=== PATIENT | male | born 1965 | race Caucasian/White ===

== ENCOUNTER 2023-06-03 14:01 | Emergency (ER) | payer BC ==
[~2023-06-03] VITALS: Ht 167.6 cm; Wt 73.5 kg
[2023-06-03 14:40] VITALS: BP_SYST 140; PULSE 89; RESP 20; TEMP 98; O2SAT 97
[2023-06-03] MEDS ORDERED: NACL 0.9% 1,000 ML IV ONE (15:00)
[2023-06-03 16:16] LABS: BASOPHILS % (AUTO) 0.4 % (0.0-2.0); EOSINOPHILS # (AUTO) 0.2 K/uL (0.0-0.4); EOSINOPHILS % (AUTO) 2.6 % (0.0-4.0); HEMATOCRIT 45.6 % (36-54); LYMPHOCYTES # (AUTO) 1.6 K/uL (1.0-5.5); LYMPHOCYTES % (AUTO) 19.9 % (20.5-51.5); MEAN CORPUSCULAR HEMOGLOBIN 31 pg (27-31); MEAN CORPUSCULAR HGB CONC 33 % (32-36); MEAN CORPUSCULAR VOLUME 93 fL (79.0-98.0); MONOCYTES # (AUTO) 1.6 K/uL (0.0-1.0); MONOCYTES % (AUTO) 19.5 % (1.7-9.3); NEUTROPHILS # (AUTO) 4.7 K/uL (1.8-7.7); NEUTROPHILS % (AUTO) 57.6 % (40.0-70.0); PLATELET COUNT (AUTO) 256 K/uL (130-430); RED BLOOD CELL COUNT(AUTO) 4.89 MIL/uL (4.2-6.2); RED CELL DISTRIBUTION WIDTH 13.5 % (9.0-15.0); WHITE BLOOD COUNT (AUTO) 8.2 K/uL (4.8-10.8)
[2023-06-03 16:27] LABS: INFLUENZA TYPE A Negative (NEGATIVE); INFLUENZA TYPE B NEGATIVE (NEGATIVE)
[2023-06-03 16:28] LABS: PROTHROMBIN TIME 9.9 SECS (9.5-12.5)
[2023-06-03 16:30] LABS: CALCIUM 9.2 mg/dL (8.4-11.0); CREATININE 0.79 mg/dL (0.55-1.30); POTASSIUM 3.8 mmol/L (3.5-5.1)
[2023-06-03 16:35] LABS: TOTAL BILIRUBIN 0.3 mg/dL (0.0-1.0); TOTAL PROTEIN, SERUM 7.3 g/dL (6.4-8.3)
[2023-06-03 16:42] LABS: BILIRUBIN,URINE NEGATIVE (NEGATIVE); CLARITY/URINE CLEAR (CLEAR); COLOR,URINE YELLOW (YELLOW); GLUCOSE,URINE 3+ (NEGATIVE); KETONES,URINE NEGATIVE (NEGATIVE); LEUKOCYTE ESTERASE ,URINE NEGATIVE (NEGATIVE); NITRITE, URINE NEGATIVE (NEGATIVE); PROTEIN URINE TRACE (NEGATIVE); UROBILINOGEN,URINE 0.2 (0.2-1.0)
[2023-06-03 16:44] LABS: BLOOD, URINE TRACE (NEGATIVE)
[2023-06-03] MEDS ORDERED: KETOROLAC TROMETHAMINE 30 MG VIAL IVP ONE (17:00)
[2023-06-03 17:01] LABS: BACTERIA,URINE FEW /HPF (None Seen); WBC,URINE 0-3 /HPF (0-3)
[2023-06-03 18:32] VITALS: BP_SYST 169; PULSE 82; RESP 20; TEMP 98.1; O2SAT 97
== END 2023-06-03 18:32 | disposition home or self-care (01) ==
LOC: SED 14:01
DX: B34.9 Viral infection, unspecified (principal); R53.1 Weakness; R30.0 Dysuria; R10.9 Unspecified abdominal pain; E11.9 Type 2 diabetes mellitus without complications; I10 Essential (primary) hypertension; Z79.899 Other long term (current) drug therapy; Z20.822 Contact with and (suspected) exposure to COVID-19
CPT/HCPCS: 99285; 96360; 71045; 87426; 80053; 81001; 85025; 85610; 85730; 87040; 87086; 36415; 93005; 83605; 87804 ×2; 81000; 81015; J7030

== ENCOUNTER 2024-04-15 12:23 | Emergency (ER) | payer BC ==
[~2024-04-15] VITALS: Ht 165.1 cm; Wt 78.5 kg
[2024-04-15 12:26] VITALS: BP_SYST 124; PULSE 90; RESP 16; TEMP 97.3; O2SAT 97
[2024-04-15 13:00] LABS: BASOPHILS # (AUTO) 0.1 K/uL (0.0-0.2); BASOPHILS % (AUTO) 0.6 % (0.0-2.0); EOSINOPHILS # (AUTO) 0.2 K/uL (0.0-0.4); HEMATOCRIT 47.9 % (36-54); LYMPHOCYTES # (AUTO) 2.4 K/uL (1.0-5.5); LYMPHOCYTES % (AUTO) 28.8 % (20.5-51.5); MEAN CORPUSCULAR HEMOGLOBIN 31 pg (27-31); MEAN CORPUSCULAR HGB CONC 34 % (32-36); MEAN CORPUSCULAR VOLUME 93 fL (79.0-98.0); MONOCYTES # (AUTO) 0.9 K/uL (0.0-1.0); MONOCYTES % (AUTO) 10.9 % (1.7-9.3); NEUTROPHILS # (AUTO) 4.8 K/uL (1.8-7.7); NEUTROPHILS % (AUTO) 57.7 % (40.0-70.0); PLATELET COUNT (AUTO) 232 K/uL (130-430); RED BLOOD CELL COUNT(AUTO) 5.18 MIL/uL (4.2-6.2); RED CELL DISTRIBUTION WIDTH 13.3 % (9.0-15.0); WHITE BLOOD COUNT (AUTO) 8.4 K/uL (4.8-10.8)
[2024-04-15 13:07] LABS: CALCIUM 9.2 mg/dL (8.4-11.0); CREATININE 0.86 mg/dL (0.55-1.30); POTASSIUM 4.1 mmol/L (3.5-5.1)
[2024-04-15 14:38] VITALS: BP_SYST 124; PULSE 90; RESP 16; TEMP 97.3; O2SAT 97
== END 2024-04-15 14:38 | disposition home or self-care (01) ==
LOC: SED 12:23
DX: H53.8 Other visual disturbances (principal); R51.9 Headache, unspecified; E11.9 Type 2 diabetes mellitus without complications; I10 Essential (primary) hypertension
CPT/HCPCS: 36415; 70450-TC; 80048; 85025; 99284